=== PATIENT | female | born 1990 | race Caucasian/White ===

== ENCOUNTER 2018-02-25 13:35 | Emergency (ER) | payer OTHER ==
[~2018-02-25] VITALS: Ht 170.1 cm; Wt 74.8 kg
[~2018-02-25 13:35] MED LIST: BACTRIM DS 8001 TA1 PO; BACTROBAN2% TP; BIAXIN500 MG PO; CIPRO500 MG PO; CIPROFLOXACIN500 MG PO; CLEOCIN150 MG PO; CLINDAMYCIN HC300 MG PO; FLAGYL500 MG PO; IMITREX50 MG PO; MACROBID100 M1 PO; MACRODANTIN100 MG PO; MOTRIN800 MG PO; Motrin,Rufen800 MG PO; NKHM; PYRIDIUM200 MG PO; SEPTRA DS 800 M1 TAB PO; TOBRADEX 0.1%-0.5 ML OPH; ZOFRAN ODT4 MG SL; ZOFRAN4 MG PO; Zofran4 MG PO
[2018-02-25] MEDS ORDERED: NAPROSYN500 MG PO (13:55)
[2018-02-25] MEDS ORDERED: PREDNISONE10 MG PO (15:16)
[2018-02-25] MEDS ORDERED: CLARITIN10 MG PO (15:16)
[2018-02-25] MEDS ORDERED: PROAIR HFA8.5 GM INH (15:16)
[2018-02-25] MEDS ORDERED: FLONASE ALLERG9.9 ML NAS (15:16)
== END 2018-02-25 15:20 | disposition home or self-care (01) ==
LOC: ED 13:35
DX: R07.89 Other chest pain (principal); F17.200 Nicotine dependence, unspecified, uncomplicated; Z88.0 Allergy status to penicillin

== ENCOUNTER 2018-12-13 11:04 | Emergency (ER) | payer OTHER ==
[~2018-12-13] VITALS: Ht 170.1 cm; Wt 72.1 kg
[~2018-12-13 11:04] MED LIST changes: +CLARITIN10 MG PO; +FLONASE ALLERG9.9 ML NAS; +NAPROSYN500 MG PO; +PREDNISONE10 MG PO; +PROAIR HFA8.5 GM INH
[2019-01-13] MEDS ORDERED: ZITHROMAX250 MG PO (17:08)
[2019-01-13] MEDS ORDERED: MEDROL DOSEPAK4 MG PO (17:08)
[2019-01-13] MEDS ORDERED: FLONASE ALLERG9.9 ML NAS (17:08)
[2019-01-13] MEDS ORDERED: SUDOGEST60 MG PO (17:08)
== END 2018-12-13 12:27 | disposition home or self-care (01) ==
LOC: ED 11:04
DX: S90.31XA Contusion of right foot, initial encounter (principal); S91.104A Unspecified open wound of right lesser toe(s) without damage to nail, initial encounter; F17.200 Nicotine dependence, unspecified, uncomplicated; Z88.0 Allergy status to penicillin; Z79.899 Other long term (current) drug therapy; W22.09XA Striking against other stationary object, initial encounter; Y93.89 Activity, other specified; Y92.89 Other specified places as the place of occurrence of the external cause; Y99.8 Other external cause status

== ENCOUNTER 2019-04-26 10:06 | Emergency (ER) | payer OTHER ==
[~2019-04-26] VITALS: Ht 170.1 cm; Wt 71.2 kg
[~2019-04-26 10:06] MED LIST changes: +MEDROL DOSEPAK4 MG PO; +SUDOGEST60 MG PO; +ZITHROMAX250 MG PO
[2019-04-26] MEDS ORDERED: MEDROL DOSEPAK4 MG PO (10:59)
[2019-04-26] MEDS ORDERED: Motrin,Rufen800 MG PO (10:59)
== END 2019-04-26 11:22 | disposition home or self-care (01) ==
LOC: ED 10:06
DX: M79.604 Pain in right leg (principal); R20.0 Anesthesia of skin; F17.200 Nicotine dependence, unspecified, uncomplicated; Z88.0 Allergy status to penicillin; X50.0XXA Overexertion from strenuous movement or load, initial encounter; Y93.89 Activity, other specified; Y92.89 Other specified places as the place of occurrence of the external cause; Y99.8 Other external cause status

== ENCOUNTER → 2020-09-02 | Outpatient (CLI) | payer OTHER | END | disposition home or self-care (01) | LOC: US 12:40 | PROVIDERS: ATTEND Nurse Practitioner Women's Health | DX: Z34.81 Encounter for supervision of other normal pregnancy, first trimester (principal); Z3A.10 10 weeks gestation of pregnancy ==

== ENCOUNTER 2023-04-14 17:43 | Emergency (ER) | payer OTHER ==
[~2023-04-14] VITALS: Wt 74.8 kg
== END 2023-04-14 19:43 | disposition home or self-care (01) ==
LOC: ED 17:43
DX: S90.811A Abrasion, right foot, initial encounter (principal); Z88.0 Allergy status to penicillin; Z98.890 Other specified postprocedural states; Z72.0 Tobacco use; W20.8XXA Other cause of strike by thrown, projected or falling object, initial encounter; Y93.89 Activity, other specified; Y92.89 Other specified places as the place of occurrence of the external cause; Y99.0 Civilian activity done for income or pay

== ENCOUNTER 2024-12-12 18:46 | Emergency (ER) | payer SELFPAY ==
[~2024-12-12] VITALS: Ht 170.1 cm; Wt 79.4 kg
[2024-12-12] MEDS ORDERED: ACETAMINOPHEN 325 MG TAB PO ONE (19:05)
[2024-12-12] MEDS ORDERED: ZYRTEC10 M2 PO (20:02)
== END 2024-12-12 20:08 | disposition home or self-care (01) ==
LOC: ED 18:46
DX: J06.9 Acute upper respiratory infection, unspecified (principal); Z20.822 Contact with and (suspected) exposure to COVID-19; H92.01 Otalgia, right ear; Z88.0 Allergy status to penicillin; Z98.890 Other specified postprocedural states

== ENCOUNTER → 2025-03-05 | Outpatient (CLI) | payer OTHER ==
[~2025-03-05] MED LIST changes: +ZYRTEC10 M2 PO
[2025-03-05 09:09] LABS: BASO % 0.3 % (0.0-1.0); EOS # 0.2 10*3/uL (0.0-0.4); EOS % 1.5 % (1.0-4.0); MEAN CELL VOLUME 92.6 fl (81.0-99.0); MEAN CORPUSCULAR HGB 29.9 pg (27.0-31.0); MEAN CORPUSCULAR HGB CONC 32.3 g/dl (33.0-37.0); MEAN PLATELET VOLUME 12.9 fl (9.6-12.3); MONO # 0.6 10*3/uL (0.1-1.0); MONO % 5.6 % (3.0-9.0); NEUT # 7.5 10*3/uL (2.3-7.9); NEUT % 71.5 % (47.0-73.0); PLATELET COUNT AUTOMATED 139 10*3/uL (130-400); RED BLOOD COUNT 3.24 10*6/uL (4.10-5.10); RED CELL DISTRI WIDTH 12.5 % (0-14.5); WHITE BLOOD COUNT 10.5 10*3/uL (4.8-10.8)
[2025-03-06 05:07] LABS: HBsAG SCREEN Negative (Negative); HCV Ab Non Reactive (Non Reactive); HEP B CORE Ab, IgM Negative (Negative)
== END | disposition home or self-care (01) ==
LOC: LAB 08:29
PROVIDERS: ATTEND Nurse Practitioner Family
DX: Z34.93 Encounter for supervision of normal pregnancy, unspecified, third trimester (principal); Z3A.00 Weeks of gestation of pregnancy not specified

== ENCOUNTER 2025-05-25 12:28 | Emergency (ER) | payer OTHER ==
[~2025-05-25] VITALS: Ht 170.1 cm; Wt 86.2 kg
[2025-05-25 14:05] LABS: BASO # 0.1 10*3/uL (0.0-0.1); BASO % 0.7 % (0.0-1.0); EOS # 0.1 10*3/uL (0.0-0.4); EOS % 1.6 % (1.0-4.0); MEAN CELL VOLUME 82.4 fl (81.0-99.0); MEAN CORPUSCULAR HGB 25.2 pg (27.0-31.0); MEAN PLATELET VOLUME 12.1 fl (9.6-12.3); MONO # 0.5 10*3/uL (0.1-1.0); MONO % 7.5 % (3.0-9.0); NEUT # 3.8 10*3/uL (2.3-7.9); NEUT % 56.5 % (47.0-73.0); NUCLEATED RED BLOOD CELL 0.0 % (0.0-0.0); NUCLEATED RED BLOOD CELL 0.0 10*3/uL (0.0-0.0); PLATELET COUNT AUTOMATED 247 10*3/uL (130-400); RED CELL DISTRI WIDTH 14.6 % (0-14.5)
[2025-05-25 14:30] LABS: BUN 10 mg/dl (9-23); CPK 81 U/L (34-171)
[2025-05-25] MEDS ORDERED: SODIUM CHLORIDE 0.9% 100 ML BAG IV ONE (15:00)
[2025-05-25] MEDS ORDERED: IOHEXOL 350 MG/ML 100 ML VIAL IV ONE (15:00)
== END 2025-05-25 17:32 | disposition left against medical advice (07) ==
LOC: ED 12:28
PROVIDERS: Emergency Medicine
DX: J93.9 Pneumothorax, unspecified (principal); J43.9 Emphysema, unspecified; R07.81 Pleurodynia; F17.210 Nicotine dependence, cigarettes, uncomplicated; Z98.890 Other specified postprocedural states; Z88.0 Allergy status to penicillin; Z87.440 Personal history of urinary (tract) infections